=== PATIENT | female | born 1960 | race Hispanic/Latino ===

== ENCOUNTER → 2025-05-06 | Outpatient (CLI) | payer MEDICAID ==
--- NOTE | 2025-05-07 08:04 | HMCSR ---
APPROVED REPORT EXAM: Two-dimensional and M-mode echocardiogram with Doppler and color Doppler. INDICATION ICD: R06.02 Shortness of breath 2D Dimensions RVDd 3.1 cm LVEF(%) 59.8 (>50%) LVED Vol(simp.) 91.0 mL IVSd 0.8 (0.7-1.1cm) FS(%) 31 % LVES Vol(simp.) 39.0 mL LVDd 3.9 (3.8-5.6cm) LA (2D) 3.4 (1.6-4.0cm) LVEF(%, simp.) 57 % PWd 0.9 (0.7-1.1cm) Ao Root(2D) 3.2 (2.0-3.7cm) LA ESV INDEX (BP) 26.02 mL/m2 IVSs 0.8 cm LVOT diam 2.4 (1.8-2.4cm) LVDs 2.7 (2.5-4.0cm) IVC diam 1.5 cm PWs 0.8 cm M-Mode Dimensions EPSS 0.5 cm LA (MM) 3.9 (1.6-4.0cm) Ao Root(MM) 2.9 (2.0-3.7cm) Aortic Valve AoV Vmax 1.2 m/s Ao Peak GR 5.4 mmHg LVOT Vmax 1.0 m/s AoV VTI 0.2 m Ao Mean GR 3.3 mmHg LVOT VTI 0.25 m FRANDY (VMAX) 3.88 cm2 FRANDY (VTI) 5.3 cm2 Mitral Valve MV E Vmax 61.6 cm/s DECEL Time 253 ms MV A Vmax 72.3 cm/s P 1/2 T 49 ms E/A ratio 0.9 MVA (PHT) 4.5 cm2 TDI E/E' Medial 10.0 E/E' Lateral 7.1 Medial E' Peak V 6.18 cm/s Lateral E' Peak V 8.64 cm/s Pulmonary Valve PV Vmax 0.9 m/s PV Mean GR 1.8 mmHg PV Peak GR 3.1 mmHg Tricuspid Valve TR Vmax 2.0 m/s RAP (EST) 3 mmHg RVSP 18.7 mmHg TR Peak GR 15.7 mmHg Left Ventricle The left ventricle is normal size. There is normal left ventricular wall thickness. The LVEF is > 55%. The left ventricular diastolic function is normal. Right Ventricle The right ventricle is normal size. The right ventricular systolic function is normal. Atria The left atrium size is normal. The right atrium size is normal. Aortic Valve The aortic valve is normal in structure. No aortic regurgitation is present. There is no aortic valvular stenosis. Mitral Valve The mitral valve is normal in structure. There is trace mitral valve regurgitation noted. There is no mitral valve stenosis. Tricuspid Valve The tricuspid valve is normal in structure. There is no tricuspid valve regurgitation noted. Pulmonic Valve The pulmonary valve is not well visualized. There is trivial pulmonic valvular regurgitation. Great Vessels The aortic root is normal in size. The IVC is normal in size and collapses <50% with inspiration. Pericardium There is no pericardial effusion. Other Information Quality : Adequate Rhythm : NSR Conclusion The LVEF is > 55%. The left ventricular diastolic function is normal.
== END | disposition home or self-care (01) ==
LOC: RAH 14:23
PROVIDERS: ATTEND Family Medicine
DX: I08.8 Other rheumatic multiple valve diseases (principal); R06.02 Shortness of breath; R60.9 Edema, unspecified; I10 Essential (primary) hypertension; K21.9 Gastro-esophageal reflux disease without esophagitis; E55.9 Vitamin D deficiency, unspecified
CPT/HCPCS: 93306